=== PATIENT | female | born 1965 | race African-American/Black ===

== ENCOUNTER 2016-04-23 12:30 | Emergency (ER) | payer MEDICAID ==
[~2016-04-23] VITALS: Ht 167.6 cm; Wt 72.0 kg
[~2016-04-23 12:30] MED LIST: FLUC100T2 PO; FLUO.05%ST TOP; NYST100010 TOP
[2016-04-23 12:31] VITALS: BP 126/74; PULSE 84; RESP 12; TEMP 97.8; O2SAT 98
--- NOTE | 2016-04-23 12:55 | PD ---
HPI Chief Complaint: Skin Problem Time Seen by Provider: 12:50 Travel History International Travel<30 days: No Contact w/Intl Traveler<30days: No Traveled to known affect area: No History of Present Illness HPI 51-year-old female presents to the emergency department complaining of a dry, rash to the dorsal aspect of her second, third, and fourth fingers 3 months. She has tried multiple [id number] topicals with no symptom relief. The rash is not painful or itchy. She does have some cracking on some of the fingers to the area of the rash. Denies drainage from the areas. Denies erythema, edema. She does use hand greensman. She denies fever, chills, nausea , vomiting. Denies paresthesias, loss of sensation, decreased range of motion, decreased strength to the affected extremity. Denies rash anywhere else. No other medical complaints. No known allergies. No other modifying factors or associated signs and symptoms. History Past Medical Histgory LMP: 03/23/16 Social History Alcohol Use: Yes (OCC) Tobacco Use: Yes (1/2PPD) Allergies-Medications (Allergen,Severity, Reaction): Coded Allergies: No Known Allergies (Verified , 04/23/16) Reported Meds & Prescriptions Reported Meds & Active Scripts Active Fluconazole 100 Mg Tab 150 Mg PO ONCE Fluocinonide 0.05 % Cre 1 Applic TOP DAILY APPLY TO: arms only for 1 week NYSTATIN Cream (Nystatin) 15 Gm Cre 1 Applic TOP BID apply to groin areas twice daily for 2 weeks Review of Systems Except as stated in HPI: all other systems reviewed are Neg Physical Exam Narrative GENERAL: Well-nourished, well-developed female patient, in no acute distress SKIN: Warm and dry. Patches of dry skin noted to the anterior aspect of the right second, third, and fifth digits. The areas are without erythema, edema, drainage. No signs of infection. HEAD: Atraumatic. Normocephalic. EYES: Pupils equal and round. No scleral icterus. No injection or drainage. ENT: Mucosa pink and moist. Airway patent. NECK: Trachea midline. CARDIOVASCULAR: Regular rate. RESPIRATORY: No accessory muscle use. GASTROINTESTINAL: Flat. MUSCULOSKELETAL: No obvious deformities. No clubbing. No cyanosis. No edema. NEUROLOGICAL: Awake and alert. Oriented 3. No obvious cranial nerve deficits. Motor grossly within normal limits. Normal speech. PSYCHIATRIC: Appropriate mood and affect; insight and judgment normal. Data Data Last Documented VS Vital Signs Date Time Temp Pulse Resp B/P Pulse Ox O2 Delivery O2 Flow Rate FiO2 04/23/16 12:31 97.8 84 12 126/74 98 MDM Medical Screen Exam Complete: Yes Emergency Medical Condition: No Differential Diagnosis Eczema, dry skin, contact dermatitis, medical clearance Narrative Course 51-year-old female with areas of dry skin to her right second, third, fifth digits. No signs of infection. The right upper extremity is supple and non- tense with 2+ radial pulses and sensory intact and without erythema or edema. Patient is afebrile and nontoxic-appearing. She denies fever, chills, nausea, vomiting. Vital signs are stable and the patient is stable for outpatient follow-up and treatment. The patient has no urgent or emergent medical complaints. There is no emergent or urgent medical need at this time. I instructed the patient to follow up with their primary care provider. A medical screening exam was performed: At the time of evaluation the presenting medical condition was determined not to be of an emergent nature. The patient was given the option of receiving additional care, but declined. Patient was given options for additional community resources from which to obtain care. The Patient Has Been advised to seek medical attention for their presenting complaint. The patient has been advised to return to the ER at any time if an emergent condition develops. Primary Impression: Encounter for medical screening examination Condition: Stable Nora Milton Apr 23, 2016 12:55
== END 2016-04-23 12:56 | disposition left against medical advice (07) ==
LOC: NEPB 12:30
DX: R21 Rash and other nonspecific skin eruption (principal)
CPT/HCPCS: 99281

== ENCOUNTER 2017-07-28 16:16 | Emergency (ER) | payer BC, MEDICAID ==
[~2017-07-28] VITALS: Ht 162.6 cm; Wt 81.0 kg
[2017-07-28 16:22] VITALS: BP 122/76; PULSE 90; RESP 18; TEMP 97.9; O2SAT 97
--- NOTE | 2017-07-28 16:46 | PD ---
HPI Chief Complaint: Injury Time Seen by Provider: 16:41 Travel History International Travel<30 days: No Contact w/Intl Traveler<30days: No Traveled to known affect area: No History of Present Illness HPI 52-year-old female complains of right foot pain. Patient states that she struck her right foot against the brick yesterday. Patient stated pain is sharp pain localized to the right big toe and first metatarsal area. Patient denies any pain radiation. Patient states that the pain is worse with weightbearing. On a scale of 1-10 the pain is a 7. PFSH Past Medical History High Cholesterol: Yes Diabetes: No Hypertension: Yes ?: Not : 7 Para: 7 Tubal Ligation: Yes Social History Alcohol Use: Yes (OCC) Tobacco Use: Yes (1/2PPD) Substance Use: No Allergies-Medications (Allergen,Severity, Reaction): Coded Allergies: No Known Allergies (Verified , 04/23/16) Reported Meds & Prescriptions Reported Meds & Active Scripts Active Review of Systems General / Constitutional: No: Fever Eyes: No: Visual changes HENT: No: Headaches Cardiovascular: No: Chest Pain or Discomfort Respiratory: No: Shortness of Breath Gastrointestinal: No: Abdominal Pain Genitourinary: No: Dysuria Musculoskeletal: Positive: Pain Skin: No Rash Neurologic: No: Weakness Psychiatric: No: Depression Endocrine: No: Polydipsia Hematologic/Lymphatic: No: Easy Bruising Physical Exam Narrative GENERAL: Well-nourished, well-developed patient. SKIN: Focused skin assessment warm/dry. HEAD: Normocephalic. EYES: No scleral icterus. No injection or drainage. NECK: Supple, trachea midline. No JVD or lymphadenopathy. CARDIOVASCULAR: Regular rate and rhythm without murmurs, gallops, or rubs. RESPIRATORY: Breath sounds equal bilaterally. No accessory muscle use. GASTROINTESTINAL: Abdomen soft, non-tender, nondistended. MUSCULOSKELETAL: No cyanosis, or edema. BACK: Nontender without obvious deformity. No CVA tenderness. Patient has moderate tenderness on palpation at the base of the right big toe and first metatarsal. No redness no swelling no deformity noted. Data Data Last Documented VS Vital Signs Date Time Temp Pulse Resp B/P (MAP) Pulse Ox O2 Delivery O2 Flow Rate FiO2 07/28/17 16:22 97.9 90 18 122/76 (91) 97 Orders Orders Foot, Complete ([id number]) (07/28/17 16:43) MDM Medical Decision Making Medical Screen Exam Complete: Yes Emergency Medical Condition: Yes Differential Diagnosis Differential diagnosis including contusion, fracture, dislocation. Narrative Course 52-year-old female with right foot injury. Diagnosis Primary Impression: Contusion of right foot Qualified Codes: S90.31XA - Contusion of right foot, initial encounter Patient Instructions: General Instructions Additional Instructions: Ice pack as needed. Take medication as needed for pain. Follow-up with orthopedist if persistent problem. Med/Other Pt SpecificInfo: Prescription(s) given Scripts Meloxicam (Mobic) 15 Mg Tab 15 MG PO DAILY for Pain, #20 TAB 0 Refills Prov: Mehdi Quinones MD 07/28/17 Disposition: 01 DISCHARGE HOME Condition: Stable Mehdi Quinones MD Jul 28, 2017 16:46
[2017-07-28] MEDS ORDERED: MOBI15TA PO (17:14)
--- NOTE | 2017-07-28 17:26 | RADRPT ---
EXAM DATE: 07/28/2017 5:05 PM EDT AGE/SEX: 52 years / Female INDICATIONS: Right foot pain after jamming great toe on the break. CLINICAL DATA: This is the patient's initial encounter. Patient reports that signs and symptoms have been present for 1 day and indicates a pain score of 8/10. MEDICAL/SURGICAL HISTORY: None. None. COMPARISON: No prior exams available for comparison. FINDINGS: There are small presumed avulsion fracture fragments along the medial aspect of the first metatarsal. No dislocation. No other fractures are seen. Bone spurs noted at the posterior calcaneus at the Achi lles and plantar fascial insertions. CONCLUSION: Probable small avulsion fracture at medial aspect of distal first metatarsal. No other fracture ident ified. Electronically signed by: Chevy Cherry MD 07/28/2017 5:25 PM EDT
== END 2017-07-28 17:37 | disposition home or self-care (01) ==
LOC: NEPD 16:16
DX: S90.31XA Contusion of right foot, initial encounter (principal); I10 Essential (primary) hypertension; E78.00 Pure hypercholesterolemia, unspecified; F17.200 Nicotine dependence, unspecified, uncomplicated; W22.09XA Striking against other stationary object, initial encounter
CPT/HCPCS: 73630; 99283